=== PATIENT | male | born 1970 | race Caucasian/White ===

== ENCOUNTER 2020-05-24 01:08 | Inpatient (IN) | payer MEDICARE ==
[~2020-05-24] VITALS: Ht 185.4 cm; Wt 84.8 kg
[2020-05-24 01:21] LABS: BASOPHILS ABSOLUTE AUTO 0.04 K/mm3 (0.00-0.23); BASOPHILS PERCENT AUTO 0 % (0-2); EOSINOPHILS ABSOLUTE AUTO 0.06 K/mm3 (0.00-0.68); EOSINOPHILS PERCENT AUTO 0 % (0-6); Hematocrit 35.6 % (37.0-53.0); Hemoglobin 11.4 g/dL (13.5-17.5); IMMATURE GRAN ABSOLUTE AUTO 0.09 K/mm3 (0.00-0.10); IMMATURE GRAN PERCENT AUTO 1 % (0-1); LYMPHOCYTES ABSOLUTE AUTO 1.27 K/mm3 (0.84-5.20); LYMPHOCYTES PERCENT AUTO 7 % (21-46); MONOCYTES PERCENT AUTO 12 % (4-13); Mean Corpuscular HGB 29.5 pg (26.0-34.0); Mean Corpuscular Volume 92 fL (80-100); Mean Platelet Volume 10.6 fL (9.1-12.4); NEUTROPHILS ABSOLUTE AUTO 14.39 K/mm3 (1.96-9.15); NEUTROPHILS PERCENT AUTO 80 % (41-73); Platelet Count 380 K/mm3 (150-400); RDW Coefficient Variation 13.6 % (11.7-14.2); RDW Standard Deviation 45.6 fL (35.1-46.3); Red Blood Cell Count 3.87 M/mm3 (4.30-5.90); White Blood Cell Count 18.05 K/mm3 (4.00-11.30)
[2020-05-24 01:39] LABS: Albumin/Globulin Ratio 0.7 (0.8-1.8); Bilirubin, Total 0.6 mg/dL (0.1-1.0); Bun/Creatinine Ratio 17.7 (12.0-20.0); Calcium, Blood 9.3 mg/dL (8.5-10.1); Creatinine, Blood 1.47 mg/dL (0.60-1.20); Globulin, Blood 4.6 g/dL (2.2-4.0); Potassium, Blood 3.7 mmol/L (3.5-5.5); Total Protein, Blood 7.6 g/dL (6.4-8.2)
[2020-05-24 16:49] LABS: Source, Urine Clean Catch
--- NOTE | 2020-05-24 16:52 | NUR ---
SHIFT SUMMARY PT CONTINUES TO IN GENERAL JUST NOT "FEEL WELL" T/O SHIFT. C/O RLQ PAIN, MEDICATED PER EMAR. HAS RESTED T/O SHIFT WHEN PAIN MANAGED. PLAN IS TO KEEP PT NPO OTHER THAN ICE CHIPS AND CONTINUE IVF AND ABX AT THIS TIME.
[2020-05-24 16:57] LABS: Appearance, Urine Clear (Clear); Bilirubin, Urine Neg (Neg); Blood, Urine 1+ (Neg); Color, Urine Yellow (P-Yellow); Glucose Qualitative, Urine Neg (Neg); Ketones, Urine Neg (Neg); Leukocyte Esterase, Urine Neg (Neg); Nitrite, Urine Neg (Neg); Protein, Urine 3+ (Neg); Urobilinogen, Urine NORM (Normal)
[2020-05-24 17:09] LABS: Bacteria Rare /hpf; Squamous Epithelial Cells Rare /hpf (Few)
[2020-05-25 04:28] LABS: BASOPHILS ABSOLUTE AUTO 0.03 K/mm3 (0.00-0.23); BASOPHILS PERCENT AUTO 1 % (0-2); EOSINOPHILS ABSOLUTE AUTO 0.52 K/mm3 (0.00-0.68); EOSINOPHILS PERCENT AUTO 10 % (0-6); Hematocrit 30.2 % (37.0-53.0); Hemoglobin 9.7 g/dL (13.5-17.5); IMMATURE GRAN ABSOLUTE AUTO 0.01 K/mm3 (0.00-0.10); IMMATURE GRAN PERCENT AUTO 0 % (0-1); LYMPHOCYTES ABSOLUTE AUTO 0.86 K/mm3 (0.84-5.20); LYMPHOCYTES PERCENT AUTO 17 % (21-46); MONOCYTES ABSOLUTE AUTO 1.36 K/mm3 (0.16-1.47); MONOCYTES PERCENT AUTO 26 % (4-13); Mean Corpuscular HGB 29.5 pg (26.0-34.0); Mean Corpuscular HGB Conc 32.1 g/dL (31.5-36.5); Mean Corpuscular Volume 92 fL (80-100); Mean Platelet Volume 10.8 fL (9.1-12.4); NEUTROPHILS ABSOLUTE AUTO 2.41 K/mm3 (1.96-9.15); NEUTROPHILS PERCENT AUTO 46 % (41-73); Platelet Count 325 K/mm3 (150-400); RDW Coefficient Variation 13.6 % (11.7-14.2); RDW Standard Deviation 46.6 fL (35.1-46.3); Red Blood Cell Count 3.29 M/mm3 (4.30-5.90); White Blood Cell Count 5.19 K/mm3 (4.00-11.30)
--- NOTE | 2020-05-25 05:05 | NUR ---
SHIFT SUMMARY PT RESTED WELL T/O NIGHT. AAOX4. NPO. PT AWOKE IN PAIN, DECREASED WITH 0.5MG IV DILAUDID + REPOSITIONING. PT UP TO CHAIR THIS AM R/T CHRONIC BACK PAIN WORSENING WHILE IN BED. IVF + ABX PER ORDERS. SMALL AMOUNTS OF ICE CHIPS THIS SHIFT. ABD TENDER TO RLQ. VSS. PT CURRENTLY RESTING IN CHAIR WITH CALL LIGHT IN REACH. AWAITING LAB RESULTS AT THIS TIME.
[2020-05-25 05:11] LABS: Anion Gap 7 mmol/L (6-16); Blood Urea Nitrogen 19 mg/dL (8-24); Bun/Creatinine Ratio 20.3 (12.0-20.0); CO2, Blood 26 mmol/L (21-32); Calcium, Blood 8.5 mg/dL (8.5-10.1); Chloride, Blood 102 mmol/L (98-108); Creatinine, Blood 0.94 mg/dL (0.60-1.20); Glomerular Filtration Rate >60 (60-); Glucose, Blood 121 mg/dL (70-99); Magnesium, Blood 2.1 mg/dL (1.6-2.4); Sodium, Blood 135 mmol/L (136-145)
[2020-05-25 05:29] LABS: Percent Saturation 9.8 % (20.0-50.0)
--- NOTE | 2020-05-25 09:34 | NUR ---
DISCHARGE PLANNING PER DR CLEANING PT WILL NEED ASSISTANCE FROM [facility] TO ESTABLISH WITH [facility] IN [place] FOR OUTPT MGMT OF APPENDIX WELL COLONOSCOPY. 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 PT AWARE OF PLAN
--- NOTE | 2020-05-25 15:15 | NUR ---
SHIFT SUMMARY PT HAS DONE WELL THIS SHIFT. HAS APPEARED TO BE LESS PAINFUL/REQUIRING LESS MEDICATION T/O. ADVANCED TO CLEAR LIQUIDS, TOLERATING WELL. PLAN IS TO CONTINUE WITH IV ABX.
[2020-05-26 04:27] LABS: Hematocrit 29.7 % (37.0-53.0); Hemoglobin 9.3 g/dL (13.5-17.5); Mean Corpuscular HGB 28.9 pg (26.0-34.0); Mean Corpuscular HGB Conc 31.3 g/dL (31.5-36.5); Mean Corpuscular Volume 92 fL (80-100); Mean Platelet Volume 10.6 fL (9.1-12.4); Platelet Count 362 K/mm3 (150-400); RDW Coefficient Variation 13.9 % (11.7-14.2); RDW Standard Deviation 47.3 fL (35.1-46.3); Red Blood Cell Count 3.22 M/mm3 (4.30-5.90); White Blood Cell Count 6.37 K/mm3 (4.00-11.30)
[2020-05-26 04:55] LABS: Anion Gap 4 mmol/L (6-16); Blood Urea Nitrogen 13 mg/dL (8-24); Bun/Creatinine Ratio 13.3 (12.0-20.0); CO2, Blood 29 mmol/L (21-32); Calcium, Blood 8.7 mg/dL (8.5-10.1); Chloride, Blood 101 mmol/L (98-108); Creatinine, Blood 0.97 mg/dL (0.60-1.20); Glomerular Filtration Rate >60 (60-); Glucose, Blood 128 mg/dL (70-99); Potassium, Blood 3.9 mmol/L (3.5-5.5); Sodium, Blood 134 mmol/L (136-145)
--- NOTE | 2020-05-26 05:00 | NUR ---
SHIFT SUMMARY PT RESTED WELL THIS NOC SHIFT. AAOX4. SIPS CLEARS T/O NIGHT. NAUSEA CONTROLLED WITH ZOFRAN X1, NO EMESIS. ABD TENDER. IVF + ABX PER ORDERS. DISCOMFORT CONTROLLED WITH TORADOL Q6H + 0.5MG IV DILAUDID X1 THIS SHIFT. NO ACUTE CHANGES. PT CURRENTLY RESTING WITH CALL LIGHT IN REACH.
--- NOTE | 2020-05-26 08:22 | NUR ---
C/O NOT FEELING GOOD TODAY, STATES PAIN IS "GOOD" DENIES ANY NAUSEA, DENIES ANY OTHER DISCOMFORT, CONT. TO MONITOR FOR ANY CHANGES.
[2020-05-26 10:53] LABS: Alanine Aminotransfer (ALT/SGP 12 U/L (12-78); Albumin, Blood 2.3 g/dL (3.4-5.0); Albumin/Globulin Ratio 0.6 (0.8-1.8); Alk Phos 68 U/L (50-136); Aspartate Aminotrans (AST/SGOT 8 U/L (12-37); Bilirubin, Direct <0.1 mg/dL (0.0-0.3); Bilirubin, Indirect Unable to Calculate mg/dL (0.1-0.7); Bilirubin, Total 0.3 mg/dL (0.1-1.0); Total Protein, Blood 6.3 g/dL (6.4-8.2); Triglycerides 183 mg/dL (30-160)
--- NOTE | 2020-05-26 17:53 | NUR ---
SUMMARY PT SLEPT MOST OF THE DAY, UNABLE TO GET PICC LINE IN TODAY, PT STARTED ON CLINIMIX W/ LIPIDS PER CONTROL ROOM TECHNICIAN ORDER, DENIED ANY NEED FOR PAIN MEDS ALL DAY, DENIES ANY NAUSEA, TOOK VERY LITTLE CLEAR LIQUIDS TODAY, NO OTHER CHANGES THIS SHIFT.
[2020-05-27 04:36] LABS: Hematocrit 27.7 % (37.0-53.0); Hemoglobin 8.9 g/dL (13.5-17.5); Mean Corpuscular HGB 29.6 pg (26.0-34.0); Mean Corpuscular HGB Conc 32.1 g/dL (31.5-36.5); Mean Corpuscular Volume 92 fL (80-100); Mean Platelet Volume 10.7 fL (9.1-12.4); Platelet Count 371 K/mm3 (150-400); RDW Coefficient Variation 14.1 % (11.7-14.2); RDW Standard Deviation 48.3 fL (35.1-46.3); Red Blood Cell Count 3.01 M/mm3 (4.30-5.90); White Blood Cell Count 6.59 K/mm3 (4.00-11.30)
[2020-05-27 04:56] LABS: Anion Gap 5 mmol/L (6-16); Blood Urea Nitrogen 11 mg/dL (8-24); Bun/Creatinine Ratio 11.4 (12.0-20.0); CO2, Blood 29 mmol/L (21-32); Calcium, Blood 8.9 mg/dL (8.5-10.1); Chloride, Blood 104 mmol/L (98-108); Creatinine, Blood 0.96 mg/dL (0.60-1.20); Glomerular Filtration Rate >60 (60-); Glucose, Blood 108 mg/dL (70-99); Potassium, Blood 3.9 mmol/L (3.5-5.5); Sodium, Blood 138 mmol/L (136-145)
--- NOTE | 2020-05-27 07:49 | NUR ---
SHIFT SUMMARY NO ACUTE CHANGES THIS SHIFT. PT A/OX4 WITH VSS. PAIN MANAGED PER ORDERS AND REPOSITIONING, MEDICATED 2X T/O NIGHT. ABX AND CLINIMIX INFUSING PER ORDERS. REPORTS VOIDING WITHOUT DIFFICUTLY. JOSE WATER AT THIS TIME. PT APPEARS TO HAVE SLEPT WELL T/O MOST OF NIGHT. MR. HERNANDEZ IS CURRENTLY RESTING IN BED WITH HIS CALL LIGHT IN REACH. REPORT GIVEN TO DAY RN.
--- NOTE | 2020-05-27 08:21 | NUR ---
REPORTS FEELING "BETTER" TODAY THAN YESTERDAY, DENIES ANY PAIN OR NAUSEA, PT ENCOURAGED OOB TO AMBULATE TODAY, PT FEELS RELUCTANT TO TRY CLEAR LIQUIDS, STATES HE FEELS "BLOATED" AFTER PO INTAKE, CONT. TO MONITOR FOR ANY CHANGES, ASSIST PRN.
--- NOTE | 2020-05-27 17:23 | NUR ---
SUMMARY PT REPORTED FEELING BETTER THIS AM, CONT. TO HAVE ABD BLOATING, REFUSED DULCOLAX SUPPOSITORY, DENIES ANY NAUSEA, NOT TOLERATING CLEAR LIQUIDS, DENIED ANY NEED FOR PAIN MEDS UNTIL LATER THIS AFTERNOON, PICC LINE PLACED, TPN STARTED, MEDICATED FOR PAIN, AMBULATED DOWN THE CRUZ, TOOK A SHOWER TODAY, NO ACUTE CHANGES THIS SHIFT.
[2020-05-28 05:21] LABS: Hematocrit 43.6 % (37.0-53.0); Hemoglobin 13.8 g/dL (13.5-17.5); Mean Corpuscular HGB 28.6 pg (26.0-34.0); Mean Corpuscular HGB Conc 31.7 g/dL (31.5-36.5); Mean Corpuscular Volume 90 fL (80-100); Mean Platelet Volume 10.3 fL (9.1-12.4); Platelet Count 298 K/mm3 (150-400); RDW Coefficient Variation 14.3 % (11.7-14.2); RDW Standard Deviation 47.4 fL (35.1-46.3); Red Blood Cell Count 4.83 M/mm3 (4.30-5.90); White Blood Cell Count 4.47 K/mm3 (4.00-11.30)
[2020-05-28 05:33] LABS: Anion Gap 6 mmol/L (6-16); Blood Urea Nitrogen 16 mg/dL (8-24); Bun/Creatinine Ratio 16.3 (12.0-20.0); CO2, Blood 31 mmol/L (21-32); Calcium, Blood 8.9 mg/dL (8.5-10.1); Chloride, Blood 102 mmol/L (98-108); Creatinine, Blood 0.98 mg/dL (0.60-1.20); Glomerular Filtration Rate >60 (60-); Glucose, Blood 104 mg/dL (70-99); Magnesium, Blood 2.4 mg/dL (1.6-2.4); Phosphorus, Blood 4.2 mg/dL (2.5-4.9); Potassium, Blood 3.6 mmol/L (3.5-5.5); Sodium, Blood 139 mmol/L (136-145)
--- NOTE | 2020-05-28 07:25 | NUR ---
RECVD REPORT FROM PREVIOUS RN JUAN CARLOS, PT SLEEPING IN BED, BED IN LOWEST POSITION, BED RAILS UP X 2, CALL LIGHT WITHIN REACH
--- NOTE | 2020-05-28 07:25 | NUR ---
PT VSS T/O NIGHT. ABD REMAINS MOD DISTENDED, PT HAD NO N/V, REP PASSING SM AMT FLATUS. PO INTAKE MINIMAL. PAIN MGD W/1 OXYCODONE AND TORADOL W/REP RELIEF. TPN CONT, CBG STABLE. AMBULATION ENC.
--- NOTE | 2020-05-28 17:08 | NUR ---
shift summary: vss, no acute changes, pt remained a/o x 4. pt reports one extra large loose BM this shift. pt continued with CPN this shift, tolerating small amounts of clear liquids. pt independentin room and encoueraged to ambulate in hallway by nursing staff and MD. pt not willing to ambulate outside room, reports he will get "tangled up" with tubes. This RN encouraged pt to call for assistance in ambulating. abdomen remained tender, mildly bloated
--- NOTE | 2020-05-29 04:24 | NUR ---
SHIFT SUMMARY PT A/OX4 WITH VSS; NO ACUTE CHANGES THIS SHIFT. REPORTS PAIN AT TOLERABLE LEVEL WITH 0.5MG DILAUDID AND TORADOL. JOSE CL, DENIES N/V. CURRENTLY CONSUMING PO CONSTRAST FOR SCHEDULED ABD CT THIS MORNING AT 0600. PT APPEARS TO HAVE SLEPT WELL T/O SHIFT. REPORTS LARGE LOOSE BM TODAY. STATES HE WENT ON A LONG WALK DURING THE AFTERNOON, DAY RN VERIFIED. ENCOURAGED TO CONT AMBULATION, PT STATES HE IS TOO TIRED TONIGHT. IS VOIDING WITHOUT DIFFICULTY. ABLE TO REPOSITION SELF IN BED. IS CURRENTLY WATCHING TV IN BED WHILE DRINKING CONTRAST. DENIES NEEDS. HAS CALL LIGHT IN REACH. WILL CONT TO MONITOR AND GIVE REPORT TO ONCOMING RN.
[2020-05-29 05:47] LABS: BASOPHILS ABSOLUTE AUTO 0.03 K/mm3 (0.00-0.23); BASOPHILS PERCENT AUTO 0 % (0-2); EOSINOPHILS PERCENT AUTO 7 % (0-6); Hemoglobin 8.9 g/dL (13.5-17.5); IMMATURE GRAN ABSOLUTE AUTO 0.13 K/mm3 (0.00-0.10); IMMATURE GRAN PERCENT AUTO 1 % (0-1); LYMPHOCYTES ABSOLUTE AUTO 1.71 K/mm3 (0.84-5.20); LYMPHOCYTES PERCENT AUTO 18 % (21-46); MONOCYTES ABSOLUTE AUTO 1.21 K/mm3 (0.16-1.47); MONOCYTES PERCENT AUTO 12 % (4-13); Mean Corpuscular HGB 29.5 pg (26.0-34.0); Mean Corpuscular HGB Conc 31.8 g/dL (31.5-36.5); Mean Corpuscular Volume 93 fL (80-100); NEUTROPHILS ABSOLUTE AUTO 5.95 K/mm3 (1.96-9.15); NEUTROPHILS PERCENT AUTO 61 % (41-73); Platelet Count 460 K/mm3 (150-400); RDW Coefficient Variation 14.6 % (11.7-14.2); RDW Standard Deviation 49.4 fL (35.1-46.3); Red Blood Cell Count 3.02 M/mm3 (4.30-5.90); White Blood Cell Count 9.73 K/mm3 (4.00-11.30)
--- NOTE | 2020-05-29 06:02 | NUR ---
PT TO IMAGING PT TO IMAGING FOR ABD CT AT THIS TIME VIA WHEELCHAIR. ALL PO CONSTRAST CONSUMED PRIOR TO TRANSPORT.
[2020-05-29 06:07] LABS: Anion Gap 3 mmol/L (6-16); Blood Urea Nitrogen 14 mg/dL (8-24); Bun/Creatinine Ratio 14.3 (12.0-20.0); CO2, Blood 30 mmol/L (21-32); Calcium, Blood 8.7 mg/dL (8.5-10.1); Chloride, Blood 105 mmol/L (98-108); Creatinine, Blood 0.98 mg/dL (0.60-1.20); Glomerular Filtration Rate >60 (60-); Glucose, Blood 107 mg/dL (70-99); Phosphorus, Blood 4.1 mg/dL (2.5-4.9); Potassium, Blood 3.7 mmol/L (3.5-5.5); Sodium, Blood 138 mmol/L (136-145)
--- NOTE | 2020-05-29 06:21 | NUR ---
PT RETURNED FROM IMAGING AT THIS TIME.
--- NOTE | 2020-05-29 18:17 | NUR ---
PATIENT W/O ACUTE CHANGES THIS SHIFT. TOLERATING CL AND SALTINES W/O C/O. UP TO BR, VOIDING, SMALL LOOSE STOOLS. BC HELD, THEN D/C'D. VSS. TPN CONTINUES. DENIES PAIN, NAUSEA OR OTHER C/O. PLAN FOR SLOWLY ADVANCING DIET NEXT FEW DAYS. WILL REPORT TO PRITESH SUH.
--- NOTE | 2020-05-30 16:43 | NUR ---
SHIFT SUMMARY PATIENT TOLERATING REG DIET W/O C/O. STATES HE HAS CONT TO HAVE SOME SMALL LOOSE STOOLS. VSS. TREATED FOR BACK PAIN THIS AM, HAS DENIED NEED FOR PAIN MED THIS AFTERNOON. NO CHANGES OR C/O AT THIS TIME.
--- NOTE | 2020-05-30 22:56 | NUR ---
ASSUMED CARE AT THIS TIME. RECIEVED REPORT FROM NURSE FLOWER. PATIENT IS SITTING COMFORTABLY IN BED WITH CALL LIGHT WITHIN REACH.
--- NOTE | 2020-05-31 04:11 | NUR ---
SHIFT SUMMARY: APPENDICITIS WITH RUPTURE. PT HAS BEEN ALERT AND ORIENTED X4 THROUGHOUT SHIFT. HE HAS BEEN ABLE TO VOID AND HAVE BM'S. DAYSHIFT STATED THAT HE TOLERATED HIS REG DINNER. VITAL SIGNS ARE WITHIN NORMAL LIMITS. PAIN HAS BEEN MANAGED WITH 1 PERCOCET. HE IS CURRENTLY LAYING IN BED SLEEPING WITH CALL LIGHT WITHIN REACH. NO ACUTE CHANGES AT THIS TIME. PLAN IS TO POSSIBLY DISCHARGE TUESDAY OR TUESDAY.
[2020-05-31 05:46] LABS: BASOPHILS ABSOLUTE AUTO 0.04 K/mm3 (0.00-0.23); BASOPHILS PERCENT AUTO 0 % (0-2); EOSINOPHILS ABSOLUTE AUTO 0.67 K/mm3 (0.00-0.68); EOSINOPHILS PERCENT AUTO 7 % (0-6); Hematocrit 33.9 % (37.0-53.0); Hemoglobin 10.7 g/dL (13.5-17.5); IMMATURE GRAN ABSOLUTE AUTO 0.16 K/mm3 (0.00-0.10); IMMATURE GRAN PERCENT AUTO 2 % (0-1); LYMPHOCYTES ABSOLUTE AUTO 1.77 K/mm3 (0.84-5.20); LYMPHOCYTES PERCENT AUTO 17 % (21-46); MONOCYTES ABSOLUTE AUTO 0.92 K/mm3 (0.16-1.47); MONOCYTES PERCENT AUTO 9 % (4-13); Mean Corpuscular HGB 28.8 pg (26.0-34.0); Mean Corpuscular HGB Conc 31.6 g/dL (31.5-36.5); Mean Corpuscular Volume 91 fL (80-100); Mean Platelet Volume 9.9 fL (9.1-12.4); NEUTROPHILS ABSOLUTE AUTO 6.75 K/mm3 (1.96-9.15); NEUTROPHILS PERCENT AUTO 65 % (41-73); Platelet Count 400 K/mm3 (150-400); RDW Coefficient Variation 14.3 % (11.7-14.2); RDW Standard Deviation 47.8 fL (35.1-46.3); Red Blood Cell Count 3.72 M/mm3 (4.30-5.90); White Blood Cell Count 10.31 K/mm3 (4.00-11.30)
[2020-05-31 06:07] LABS: Albumin, Blood 2.5 g/dL (3.4-5.0); Anion Gap 5 mmol/L (6-16); Blood Urea Nitrogen 14 mg/dL (8-24); CO2, Blood 28 mmol/L (21-32); Calcium, Blood 8.7 mg/dL (8.5-10.1); Chloride, Blood 105 mmol/L (98-108); Glomerular Filtration Rate >60 (60-); Glucose, Blood 95 mg/dL (70-99); Potassium, Blood 3.9 mmol/L (3.5-5.5); Sodium, Blood 138 mmol/L (136-145)
--- NOTE | 2020-05-31 17:11 | NUR ---
SUMMARY PT REPORTED THAT HE "DIDN'T FEEL WELL" BUT WOULD NOT ELABORATE ON WHAT HE WAS FEELING. SLEPT T/O MOST OF SHIFT. UP INDEPENDENTLY TO RESTROOM. MEDICATED ONCE DURING SHIFT FOR ABDOMINAL PAIN. PT NOW IN SHOWER.
--- NOTE | 2020-05-31 17:33 | NUR ---
ASSUMED PT CARE, REPORT RECEIVED FROM ANGELI CSATANON
[2020-06-01 05:15] LABS: BASOPHILS ABSOLUTE AUTO 0.04 K/mm3 (0.00-0.23); BASOPHILS PERCENT AUTO 0 % (0-2); EOSINOPHILS ABSOLUTE AUTO 0.58 K/mm3 (0.00-0.68); EOSINOPHILS PERCENT AUTO 5 % (0-6); Hematocrit 30.2 % (37.0-53.0); Hemoglobin 9.4 g/dL (13.5-17.5); IMMATURE GRAN ABSOLUTE AUTO 0.24 K/mm3 (0.00-0.10); IMMATURE GRAN PERCENT AUTO 2 % (0-1); LYMPHOCYTES ABSOLUTE AUTO 2.37 K/mm3 (0.84-5.20); LYMPHOCYTES PERCENT AUTO 21 % (21-46); MONOCYTES ABSOLUTE AUTO 1.11 K/mm3 (0.16-1.47); MONOCYTES PERCENT AUTO 10 % (4-13); Mean Corpuscular HGB 28.2 pg (26.0-34.0); Mean Corpuscular HGB Conc 31.1 g/dL (31.5-36.5); Mean Corpuscular Volume 91 fL (80-100); NEUTROPHILS ABSOLUTE AUTO 7.14 K/mm3 (1.96-9.15); NEUTROPHILS PERCENT AUTO 62 % (41-73); Platelet Count 513 K/mm3 (150-400); RDW Coefficient Variation 14.4 % (11.7-14.2); RDW Standard Deviation 47.8 fL (35.1-46.3); Red Blood Cell Count 3.33 M/mm3 (4.30-5.90); White Blood Cell Count 11.48 K/mm3 (4.00-11.30)
--- NOTE | 2020-06-01 05:48 | NUR ---
SHIFT SUMMARY AAO X4, AMBULATORY IN ROOM. STATES PAIN IS MANAGEABLE AT 3/10, REFUSES OFFER OF PO PAIN MEDS. STATES THAT HE HAS RESTED WELL THIS SHIFT, AND IS FEELING MUCH BETTER. CONSUMED 50% OF DINNER TRAY AFTER RESTING. LINE DRAW FROM PICC LINE COMPLETED. DENIES FURTHER NEEDS OR WANTS AT THIS TIME. SAFETY MEASURES IN PLACE. WILL CONTINUE TO MONITOR AND GIVE HAND OFF TO ONCOMING SHIFT USING SBAR.
--- NOTE | 2020-06-01 17:40 | NUR ---
SUMMARY: PT VSS, A/O, INDEP IN ROOM. PT SELPT THE MAJORITY OF THE DAY, REPORTS THAT HE WAS AWAKE FROM 0000 TO 0700 LAST NIGHT. ABLE TO EAT SOME FOOD, NO NAUSEA. CONTINUES TO HAVE INTERMITTANT PAIN AT ABD, MANAGED WITH NARCO. REPORTS PASSING GAS AND A SMALL "QUARTER SIZE, LIQUID" BM THIS EVENING. CONTINUING IV ABX AND ENCOURAGING MOBILITY. NO ACUTE SAFETY CONCERNS.
--- NOTE | 2020-06-01 21:20 | NUR ---
ATTEMPTED TO GIVE HS MEDS, PT CURRENTLY SLEEPING. WILL RE-ATTEMPT LATER IF PT WAKES. SAFETY MEASURES IN PLACE. WILL CONTINUE TO MONITOR.
--- NOTE | 2020-06-02 05:59 | NUR ---
SHIFT SUMMARY AAO X4, AMBULATORY IN ROOM. STATES PAIN IS MANAGEABLE AT 3-5/10, MEDICATED PRN. RESTED WELL THIS SHIFT. SALAD AND SANDWICH PLACED IN FRIDGE WHILE HE ATE ON DINNER TRAY. DENIES FURTHER NEEDS OR WANTS AT THIS TIME. SAFETY MEASURES IN PLACE. WILL CONTINUE TO MONITOR AND GIVE HAND OFF TO ONCOMING SHIFT USING SBAR.
[2020-06-02 08:52] LABS: BASOPHILS ABSOLUTE AUTO 0.05 K/mm3 (0.00-0.23); BASOPHILS PERCENT AUTO 1 % (0-2); EOSINOPHILS ABSOLUTE AUTO 0.82 K/mm3 (0.00-0.68); EOSINOPHILS PERCENT AUTO 8 % (0-6); Hematocrit 27.9 % (37.0-53.0); Hemoglobin 8.7 g/dL (13.5-17.5); IMMATURE GRAN ABSOLUTE AUTO 0.15 K/mm3 (0.00-0.10); IMMATURE GRAN PERCENT AUTO 1 % (0-1); LYMPHOCYTES ABSOLUTE AUTO 1.86 K/mm3 (0.84-5.20); LYMPHOCYTES PERCENT AUTO 17 % (21-46); MONOCYTES ABSOLUTE AUTO 0.77 K/mm3 (0.16-1.47); MONOCYTES PERCENT AUTO 7 % (4-13); Mean Corpuscular HGB 28.6 pg (26.0-34.0); Mean Corpuscular HGB Conc 31.2 g/dL (31.5-36.5); Mean Corpuscular Volume 92 fL (80-100); Mean Platelet Volume 10.2 fL (9.1-12.4); NEUTROPHILS ABSOLUTE AUTO 7.03 K/mm3 (1.96-9.15); NEUTROPHILS PERCENT AUTO 66 % (41-73); Platelet Count 480 K/mm3 (150-400); RDW Coefficient Variation 14.2 % (11.7-14.2); RDW Standard Deviation 47.7 fL (35.1-46.3); Red Blood Cell Count 3.04 M/mm3 (4.30-5.90); White Blood Cell Count 10.68 K/mm3 (4.00-11.30)
--- NOTE | 2020-06-02 18:08 | NUR ---
SHIFT SUMMARY PT HAS DONE WELL T/O SHIFT. NO C/O PAIN OR N/V. INCREASED PO INTAKE WITH MEALS. IV ABX PER EMAR.
--- NOTE | 2020-06-03 04:43 | NUR ---
PT DID WELL DURING NIGHT. HAS BEEN TOLERATING PO, PASSING FLATUS, VOIDING WELL. JUST STATES NO BM. PAIN IS MANAGED WELL WITH 5MG PO OXYCODONE. POSSIBLE DC HOME TODAY OR TOMORROW.
[2020-06-03] MEDS ORDERED: ACET325 PO (11:29)
[2020-06-03] MEDS ORDERED: FEROSUL325 M1 PO (11:29)
[2020-06-03] MEDS ORDERED: AMOCLA875 PO (11:30)
[2020-06-03] MEDS ORDERED: OXAYDO5 M1 PO (11:30)
--- NOTE | 2020-06-03 11:47 | NUR ---
DISCHARGE PT EDUCATED ON AND RECEIVED PRINTED DISCHARGE INSTRUCTIONS AND VERB AN UNDERSTANDING. HARD RX FOR OXICODONE + AUGMENTIN GIVEN TO PT. AUGMENTIN + FERROUS SULFATE FAXED TO [facility] IN [place]. F/U DATES SCHEDULED. PICC LINE DC'D AND WNL. PT GATHERING PERSONAL BELONGINGS AND WAITING FOR RIDE HOME.
== END 2020-06-03 15:48 | disposition home or self-care (01) | DRG 871 ==
LOC: ER 01:08 → SURS 06:10
PROVIDERS: Student in an Organized Health Care Education/Training Program; Surgery; ADMIT Surgery
PROC: 02HV33Z Insertion of Infusion Device into Superior Vena Cava, Percutaneous Approach (ICD-10-PCS; principal; 2020-05-26)
PROC: 3E0436Z Introduction of Nutritional Substance into Central Vein, Percutaneous Approach (ICD-10-PCS; 2020-05-26)
DX: A41.9 Sepsis, unspecified organism (principal); K35.32 Acute appendicitis with perforation, localized peritonitis, and gangrene, without abscess; E87.1 Hypo-osmolality and hyponatremia; N17.9 Acute kidney failure, unspecified; K56.7 Ileus, unspecified; F17.210 Nicotine dependence, cigarettes, uncomplicated; E86.1 Hypovolemia; D50.9 Iron deficiency anemia, unspecified; Z20.828 Contact with and (suspected) exposure to other viral communicable diseases; Z80.0 Family history of malignant neoplasm of digestive organs
CPT/HCPCS: 36415; 74177; 80048; 80053; 80069; 80076; 81001; 82378; 82728; 82947; 83540; 83550; 83690; 83735; 84100; 84134; 84478; 85025; 85027; 86140; 93005; 93010; 96361; 96365; 96375; 99285-25; A9270; J1170; J1650; J1885; J2405; J2543; J3411; J7030; J7042; J7050; J7120; Q9967; U0003